=== PATIENT | male | born 1990 | race Caucasian/White ===

== ENCOUNTER → 2017-02-02 | Outpatient (CLI) | payer BC ==
--- NOTE | 2017-02-02 12:09 | Diagnostic Imaging Report ---
EXAMINATION: Three views of the lumbar spine. INDICATION: Low back pain. FINDINGS: There is a transitional lumbosacral junction with sacralization of the transverse processes of L5. There is satisfactory alignment of the posterior spinal line. There is straightening of the lumbar lordosis, however. The vertebral body heights are preserved. The disc heights are also preserved. There is mild disc height loss at the L4-5 and L5-S1 levels. The SI joints appear unremarkable. No significant anterior or posterior osteophytes are seen. IMPRESSION: Lower lumbar spine disc degenerative changes. Transitional lumbosacral junction. Dictated by: Dictated on workstation # [id number]
== END ==
LOC: RAD 10:34
PROVIDERS: ATTEND Nurse Practitioner Family
DX: M47.816 Spondylosis without myelopathy or radiculopathy, lumbar region (principal)
CPT/HCPCS: 72100

== ENCOUNTER → 2017-03-01 | Outpatient (CLI) | payer BC ==
--- NOTE | 2017-03-01 13:08 | Diagnostic Imaging Report ---
PROCEDURE: MRI lumbar spine. TECHNIQUE: Multiplanar, multisequence MRI of the lumbar spine was performed without contrast. INDICATION: Low back pain. FINDINGS: There is a transitional lumbosacral junction with partially lumbarized S1 and a relatively prominent disc between S1 and S2. The lumbar spine has normal alignment. The vertebral body heights are preserved. There is mild to moderate disc height loss at L5/S1. The bone marrow signal is within normal limits. 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 The AP dimension of the spinal canal is around 1 cm at all lumbar spine levels but slightly narrower in the lower lumbar spine. T12/L1: There is prominent facet hypertrophy and prominent ligamentum flavum hypertrophy seen. There is a posterior central epidural lesion noted measuring 1.9 cm in craniocaudal extension and 0.7 cm in transverse dimension. This has minimal impression upon the thecal sac but on top of the congenital narrowing of the AP dimension, results in mild central canal stenosis reducing the AP dimension of the canal to 9.6 mm. The foramina appear patent. The etiology of the posterior epidural lesion is perhaps related to the ligamentous thickening and potentially complicated synovial cyst versus a solid mass. Evaluation with a followup study with intravenous contrast is recommended. L1/2: No disc herniation. No spinal canal stenosis. The foramina are patent. L2/3: No disc herniation. No spinal canal stenosis. No foraminal narrowing. L3/4: No disc herniation. No spinal canal or foraminal stenosis. L4/5: No disc herniation. There is mild facet hypertrophy. No central canal, lateral recess or foraminal stenosis. L5/S1: There is a large broad-based central disc protrusion resulting in severe spinal canal stenosis reducing the AP dimension of the canal to 5 mm and severely compressing the lateral recess bilaterally, worse on the left side. There is no foraminal stenosis. S1/S2: There is a diffuse disc bulge asymmetric to the right side. There is a probably normal tapering of the thecal sac at this level with AP dimension of the canal at 7 mm. There is mild to moderate narrowing of the lateral recess bilaterally. IMPRESSION: 1. There is a transitional lumbosacral junction with a partially lumbarized S1 vertebra and relatively prominent S1/S2 disc. 2. 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 3. There is a large central disc protrusion at L5/S1 resulting in severe spinal canal and lateral recess stenosis. 4. At T12/L1 level, there is a posterior central epidural lesion measuring 1.9 x 0.7 cm. This could relate to the adjacent ligamentous hypertrophy. Further characterization with an MRI without and with intravenous contrast is recommended. Dictated by: Dictated on workstation # [id number]
== END ==
LOC: RAD 10:15
PROVIDERS: ATTEND Nurse Practitioner Family
DX: M51.26 Other intervertebral disc displacement, lumbar region (principal); M48.06 Spinal stenosis, lumbar region; Q76.49 Other congenital malformations of spine, not associated with scoliosis
CPT/HCPCS: 72148

== ENCOUNTER 2017-07-27 08:58 | Emergency (ER) | payer BC ==
[~2017-07-27] VITALS: Ht 175.3 cm; Wt 124.7 kg
--- OUTSIDE RECORDS SUMMARY | 2017-07-27 09:03 | XMS REPORT | Continuity of Care Document ---
Author Author [facility] Organization [facility] Address Unknown Phone Unavailable Allergies There is no data. Medications There is no data. 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 Results There is no data. Encounters ACCT No. Visit Date/Time Discharge Status Pt. Type Provider Facility Loc./Unit Complaint [id number] 03/01/2017 10:15:00 03/01/2017 23:59:59 CLS Outpatient RO COLLAZO APRN [facility] RAD LOW BACK PAIN [id number] 02/02/2017 10:34:00 02/02/2017 23:59:59 CLS Outpatient RO COLLAZO APRN [facility] RAD M54.5 [id number] 05/20/2014 19:40:00 05/21/2014 06:40:00 DIS Outpatient FLOYD BOWLES APRN [facility] SLEEP JULISA
[2017-07-27] MEDS ORDERED: NS IV 1000 ML 1,000 ML IV ONE (09:57)
[2017-07-27] MEDS ORDERED: ONDANSETRON 4 MG/2 ML (SDV) Z0FRAN IVP ONE (10:00)
[2017-07-27 10:12] LABS: BASOPHILS % (AUTO) 0 % (0-10); EOSINOPHILS % (AUTO) 0 % (0-10); LYMPHOCYTES # (AUTO) 1.3 X 10^3 (1.0-4.0); LYMPHOCYTES % (AUTO) 13 % (12-44); MEAN CORPUSCULAR HEMOGLOBIN 26 PG (25-34); MEAN CORPUSCULAR HGB CONC 33 G/DL (32-36); MEAN CORPUSCULAR VOLUME 81 FL (80-99); MEAN PLATELET VOLUME 11.3 FL (7.4-10.4); MONOCYTES # (AUTO) 0.8 X 10^3 (0.0-1.0); MONOCYTES % (AUTO) 8 % (0-12); NEUTROPHILS # (AUTO) 7.9 X 10^3 (1.8-7.8); NEUTROPHILS % (AUTO) 80 % (42-75); PLATELET COUNT 238 10^3/uL (130-400); RED BLOOD COUNT 5.72 10^6/uL (4.35-5.85); WHITE BLOOD COUNT 9.9 10^3/uL (4.3-11.0)
[2017-07-27 10:17] LABS: BILIRUBIN,URINE NEGATIVE (NEGATIVE); KETONES,URINE NEGATIVE (NEGATIVE); LEUKOCYTE ESTERASE ,URINE NEGATIVE (NEGATIVE); NITRITE,URINE NEGATIVE (NEGATIVE); PH,URINE 6 (5-9); PROTEIN,URINE 1+ (NEGATIVE); UROBILINOGEN,URINE NORMAL (NORMAL)
[2017-07-27 10:20] LABS: SQUAMOUS EPITHELIAL CELL,UR RARE /HPF
[2017-07-27 10:24] LABS: ALANINE AMINOTRANSFERASE 47 U/L (0-55); ALBUMIN 4.4 GM/DL (3.2-4.5); ANION GAP 12 MMOL/L (5-14); ASPARTATE AMINO TRANSFERASE 20 U/L (5-34); BILIRUBIN,TOTAL 0.8 MG/DL (0.1-1.0); BLOOD UREA NITROGEN 16 MG/DL (7-18); BUN/CREATININE RATIO 14; CALCIUM 9.2 MG/DL (8.5-10.1); CARBON DIOXIDE 25 MMOL/L (21-32); CHLORIDE 103 MMOL/L (98-107); CREATININE SERUM 1.16 MG/DL (0.60-1.30); GFR ESTIMATED > 60; GLUCOSE 113 MG/DL (70-105); MAGNESIUM 1.7 MG/DL (1.8-2.4); POTASSIUM 3.8 MMOL/L (3.6-5.0); SODIUM 140 MMOL/L (135-145); TOTAL PROTEIN 7.6 GM/DL (6.4-8.2)
[2017-07-27] MEDS ORDERED: HYOS0.1283 SL (11:20)
[2017-07-27] MEDS ORDERED: ONDA4TAB8 PO (11:20)
--- NOTE | 2017-07-27 11:20 | ED General ---
General Chief Complaint: Abdominal/GI Problems Stated Complaint: VOMITING Nursing Triage Note: PT CO OF ABD PAIN, PT STATES HAS BEEN SICK SINCE 07/25. PT STATES HAS HAD ABD PAIN, N/V/D OCC, STATES PAIN SOMETIMES HURTS IN TESTICLES Nursing Sepsis Screen: No Definite Risk Allergies and Home Medications Allergies Coded Allergies: No Known Drug Allergies (Unverified , 07/27/17) Past Smblpch-Iykzqs-Qfeanc Hx Patient Social History Alcohol Use: Occasionally Uses Recreational Drug Use: No Smoking Status: Never a Smoker Recent Foreign Travel: No Contact w/Someone Who Travel: No Recent Infectious Disease Expo: No Recent Hopitalizations: No Physical Abuse: No Sexual Abuse: No Seasonal Allergies Seasonal Allergies: No Surgeries History of Surgeries: No Psychosocial Suicide Risk Score: 0 Physical Exam Vital Signs Vital Sign - Last 12Hours 07/27/17 09:05 Temp 96.2 Pulse 107 Resp 18 B/P (MAP) 162/93 (116) Pulse Ox 98 Capillary Refill : Less Than 3 Seconds Progress/Results/Core Measures Suspected Sepsis Recent Fever Within 48 Hours: No Infection Criteria Present: None New/Unexplained Altered Menta: No Sepsis Screen: No Definite Risk Sepsis Diagnosis: SIRS Temperature:96.2 Pulse: 107 Respiratory Rate: 18 Laboratory Tests 07/27/17 09:15: White Blood Count 9.9 Blood Pressure 162 /93 Mean: 116 Laboratory Tests 07/27/17 09:15: Creatinine 1.16, Platelet Count 238, Total Bilirubin 0.8 Results/Orders Lab Results Laboratory Tests Test 07/27/17 09:15 07/27/17 09:50 Range/Units White Blood Count 9.9 4.3-11.0 10^3/uL Red Blood Count 5.72 4.35-5.85 10^6/uL Hemoglobin 15.1 13.3-17.7 G/DL Hematocrit 46 40-54 % Mean Corpuscular Volume 81 80-99 FL Mean Corpuscular Hemoglobin 26 25-34 PG Mean Corpuscular Hemoglobin Concent 33 32-36 G/DL Red Cell Distribution Width 15.0 H 10.0-14.5 % Platelet Count 238 130-400 10^3/uL Mean Platelet Volume 11.3 H 7.4-10.4 FL Neutrophils (%) (Auto) 80 H 42-75 % Lymphocytes (%) (Auto) 13 12-44 % Monocytes (%) (Auto) 8 0-12 % Eosinophils (%) (Auto) 0 0-10 % Basophils (%) (Auto) 0 0-10 % Neutrophils # (Auto) 7.9 H 1.8-7.8 X 10^3 Lymphocytes # (Auto) 1.3 1.0-4.0 X 10^3 Monocytes # (Auto) 0.8 0.0-1.0 X 10^3 Eosinophils # (Auto) 0.0 0.0-0.3 10^3/uL Basophils # (Auto) 0.0 0.0-0.1 10^3/uL Sodium Level 140 135-145 MMOL/L Potassium Level 3.8 3.6-5.0 MMOL/L Chloride Level 103 98-107 MMOL/L Carbon Dioxide Level 25 21-32 MMOL/L Anion Gap 12 5-14 MMOL/L Blood Urea Nitrogen 16 7-18 MG/DL Creatinine 1.16 0.60-1.30 MG/DL Estimat Glomerular Filtration Rate > 60 BUN/Creatinine Ratio 14 Glucose Level 113 H 70-105 MG/DL Calcium Level 9.2 8.5-10.1 MG/DL Magnesium Level 1.7 L 1.8-2.4 MG/DL Total Bilirubin 0.8 0.1-1.0 MG/DL Aspartate Amino Transf (AST/SGOT) 20 5-34 U/L Alanine Aminotransferase (ALT/SGPT) 47 0-55 U/L Alkaline Phosphatase 60 40-136 U/L Total Protein 7.6 6.4-8.2 GM/DL Albumin 4.4 3.2-4.5 GM/DL Urine Color YELLOW Urine Clarity SLIGHTLY CLOUDY Urine pH 6 5-9 Urine Specific [place] 1.025 H 1.016-1.022 Urine Protein 1+ H NEGATIVE Urine Glucose (UA) NEGATIVE NEGATIVE Urine Ketones NEGATIVE NEGATIVE Urine Nitrite NEGATIVE NEGATIVE Urine Bilirubin NEGATIVE NEGATIVE Urine Urobilinogen NORMAL NORMAL MG/DL Urine Leukocyte Esterase NEGATIVE NEGATIVE Urine RBC (Auto) NEGATIVE NEGATIVE Urine RBC NONE /HPF Urine WBC NONE /HPF Urine Squamous Epithelial Cells RARE /HPF Urine Crystals NONE /LPF Urine Bacteria NEGATIVE /HPF Urine Casts NONE /LPF Urine Mucus SMALL H /LPF Urine Culture Indicated NO My Orders Orders - CAROLA BIRCH MD Cbc With Automated Diff (07/27/17 09:57) Comprehensive Metabolic Panel (07/27/17 09:57) Magnesium (07/27/17 09:57) Ua Culture If Indicated (07/27/17 09:57) Saline Lock/Iv-Start (07/27/17 09:57) Ondansetron Injection (Zofran Injectio (07/27/17 10:00) Ns Iv 1000 Ml (Sodium Chloride 0.9%) (07/27/17 09:57) Medications Given in ED Current Medications Medications Dose Ordered Sig/Darya Route Start Time Stop Time Status Last Admin Dose Admin Ondansetron HCl 8 mg ONCE ONCE IVP 07/27/17 10:00 07/27/17 10:01 DC 07/27/17 10:06 8 MG Sodium Chloride 1,000 ml @ 0 mls/hr Q0M ONCE IV 07/27/17 09:57 07/27/17 10:01 DC 07/27/17 10:06 1,000 MLS/HR Vital Signs/I&O Vital Sign - Last 12Hours 07/27/17 09:05 Temp 96.2 Pulse 107 Resp 18 B/P (MAP) 162/93 (116) Pulse Ox 98 Capillary Refill : Less Than 3 Seconds Blood Pressure Mean: 116 Departure Impression Impression: Primary Impression: Nausea vomiting and diarrhea Additional Impression: Lower abdominal pain Disposition: 01 HOME, SELF-CARE Condition: Improved Departure-Patient Inst. Decision time for Depature: 11:16 Referrals: SIMONE MROENO MD (PCP/Family) Primary Care Physician Patient Instructions: Acute Abdomen (Belly Pain), Adult (DC), Viral Gastroenteritis, Adult (DC) Add. Discharge Instructions: Drink plenty of clear liquids. Gradually advance your diet with small quantities of bland food as tolerated. You may take Tylenol (acetaminophen) for discomfort. Use the Zofran (ondansetron) dissolved under the tongue every 4 hours as needed for nausea and vomiting. Use the Levsin (hyoscyamine) dissolved under the tongue every 4 hours for diarrhea and bowel cramping. Return to the emergency room if symptoms worsen. Avoid milk products until at least 24 hours after diarrhea resolves. All discharge instructions reviewed with patient and/or family. Voiced understanding. Scripts Hyoscyamine Sulfate (Levsin-Sl) 0.125 Mg Tab.subl 0.125 MG SL Q4H Y for CRAMPS, #10 TAB Prov: CAROLA BIRCH MD 07/27/17 Ondansetron (Zofran Odt) 4 Mg Tab.rapdis 4 ML PO Q4H Y for NAUSEA/VOMITING-1ST LINE, #10 TAB Prov: CAROLA BIRCH MD 07/27/17 CAROLA BIRCH MD Jul 27, 2017 11:20
[2017-07-27 11:41] VITALS: BP 162/93
== END 2017-07-27 11:41 | disposition home or self-care (01) ==
LOC: EDUNIT# 08:58 → ER 09:00
DX: R11.2 Nausea with vomiting, unspecified (principal); R19.7 Diarrhea, unspecified; R10.30 Lower abdominal pain, unspecified
CPT/HCPCS: 36415; 80053; 81000; 83735; 85025; 96361; 96374

== ENCOUNTER → 2017-08-05 | Outpatient (CLI) | payer BC ==
[~2017-08-05] MED LIST: HYOS0.1283 SL; ONDA4TAB8 PO
--- NOTE | 2017-08-05 13:32 | Diagnostic Imaging Report ---
INDICATION: Scrotal pain bilaterally x2 weeks TECHNIQUE: Real-time grayscale sonographic imaging and color vascular evaluation of both testicles was performed. CORRELATION STUDY: None FINDINGS: RIGHT testicle measures 5.1 x 2.7 x 3.4 cm. LEFT testicle measures 4.7 x 2.7 x 3.2 cm. The testicles appear normal in echogenicity. No focal testicular mass demonstrated. There is vascular flow to the testicles. The epididymides appear unremarkable. IMPRESSION: 1. Unremarkable scrotal ultrasound examination. Dictated by: Dictated on workstation # [id number]
== END ==
LOC: RAD 12:25
PROVIDERS: ATTEND Nurse Practitioner Family
DX: N50.811 Right testicular pain (principal); N50.812 Left testicular pain
CPT/HCPCS: 76870

== ENCOUNTER → 2017-08-17 | Outpatient (CLI) | payer BC ==
[~2017-08-17] MED LIST changes: +IOHEXOL 350 MG/ML 100 ML (OMNIPAQUE 350) VIAL IV ONE; +NS 100 ML (IVPB) BAG IV ONE
--- NOTE | 2017-08-17 09:21 | Diagnostic Imaging Report ---
PROCEDURE: CT abdomen and pelvis with and without contrast. TECHNIQUE: Precontrast acquisitions were acquired through the abdomen and pelvis. Multiple contiguous axial images were obtained through the abdomen and pelvis after the administration of intravenous contrast. INDICATION: Abdominal pain. COMPARISON: None. FINDINGS: The lung bases are clear. There is a fairly pronounced diffuse hepatic steatosis with some focal sparing around the gallbladder fossa. No focal hepatic mass is suspected. The portal and hepatic veins enhance normally. The gallbladder appears unremarkable. There is no biliary dilatation. The pancreas appears unremarkable. The adrenal glands and kidneys appear unremarkable. No urinary tract calcification or obstructive uropathy is seen. Ureters and bladder are unremarkable. The appendix appears normal. There are a prominent number of nonenlarged lymph nodes in the mesentery. No abnormally enlarged lymph nodes are seen. There is no free fluid or free air demonstrated. Abdominal aorta appears normal in caliber. No acute osseous abnormality is seen. IMPRESSION: 1. No acute abnormalities demonstrated. 2. Diffuse hepatic steatosis with some focal sparing. 3. No additional abnormality is seen. Dictated by: Dictated on workstation # [id number]
== END ==
LOC: RAD 08:03
PROVIDERS: ATTEND Nurse Practitioner Family
DX: K76.0 Fatty (change of) liver, not elsewhere classified (principal)
CPT/HCPCS: 74178

== ENCOUNTER 2017-08-22 05:40 | Outpatient (CLI) | payer BC ==
[~2017-08-22] VITALS: Ht 175.3 cm; Wt 124.7 kg
[~2017-08-22 05:40] MED LIST changes: -IOHEXOL 350 MG/ML 100 ML (OMNIPAQUE 350) VIAL IV ONE; -NS 100 ML (IVPB) BAG IV ONE
== END 2017-08-22 13:35 ==
LOC: PREOP 05:40
PROVIDERS: ATTEND Surgery
DX: Z01.818 Encounter for other preprocedural examination (principal); R19.4 Change in bowel habit